=== PATIENT | female | born 2005 | race African-American/Black ===

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

== ENCOUNTER 2024-01-24 17:31 | Emergency (ER) | payer OTHER, SELFPAY | END 2024-01-24 20:16 | disposition home or self-care (01) | LOC: CSHERS 17:31 | DX: H65.92 Unspecified nonsuppurative otitis media, left ear (principal) | CPT/HCPCS: 87081; 87428; 87430; 99283 ==